=== PATIENT | female | born 1990 | race Caucasian/White ===

== ENCOUNTER 2018-12-23 06:43 | Inpatient (IN) | payer OTHER ==
[~2018-12-23] VITALS: Ht 170.2 cm; Wt 89.4 kg
[2018-12-23] MEDS ORDERED: LR 1,000 ML IV ONE (07:15)
[2018-12-23] MEDS ORDERED: CITRIC ACID/SODIUM CITRATE 30 ML UDC PO ONE (07:15)
[2018-12-23] MEDS ORDERED: CEFAZOLIN 2 GM IVPB PREMIX 50 ML IV ONE (07:15)
[2018-12-23 07:43] LABS: BASOPHILS # (AUTO) 0.1 K/uL (0.0-0.2); BASOPHILS % (AUTO) 0.6 % (0.0-2.0); EOSINOPHILS # (AUTO) 0.1 K/uL (0.0-0.4); EOSINOPHILS % (AUTO) 1.6 % (0.0-4.0); HEMOGLOBIN 12.4 g/dL (12.0-16.0); LYMPHOCYTES # (AUTO) 1.7 K/uL (1.0-5.5); LYMPHOCYTES % (AUTO) 19.4 % (20.5-51.5); MEAN CORPUSCULAR HEMOGLOBIN 31 pg (27-31); MEAN CORPUSCULAR HGB CONC 34 % (32-36); MEAN CORPUSCULAR VOLUME 92 fL (79.0-98.0); MONOCYTES # (AUTO) 0.8 K/uL (0.0-1.0); MONOCYTES % (AUTO) 9.2 % (1.7-9.3); NEUTROPHILS # (AUTO) 6.1 K/uL (1.8-7.7); NEUTROPHILS % (AUTO) 69.2 % (40.0-70.0); PLATELET COUNT (AUTO) 194 K/uL (130-430); RED BLOOD CELL COUNT(AUTO) 4.04 MIL/uL (4.2-6.2); RED CELL DISTRIBUTION WIDTH 14.6 % (9.0-15.0); WHITE BLOOD COUNT (AUTO) 8.8 K/uL (4.8-10.8)
[2018-12-23] MEDS ORDERED: OXYTOCIN/0.9 % SODIUM CHLORIDE 1,000 ML IV ONE ×2 (07:51→09:28)
[2018-12-23] MEDS ORDERED: RHO(D) IMMUNE GLOBULIN/MALTOSE 1500 UNITS/1.3 ML (WINHRO) IM PRN (08:00)
[2018-12-23] MEDS ORDERED: SENNOSIDES/DOCUSATE SODIUM 1 TAB TABLET(SENOKOT-S) PO PRN (08:00)
[2018-12-23] MEDS ORDERED: MEPERIDINE HCL/PF 50 MG/ML AMP IVP PRN (08:00)
[2018-12-23] MEDS ORDERED: BISACODYL 10 MG/SUPPOSITORY RC PRN (08:00)
[2018-12-23] MEDS ORDERED: LANOLIN 7 GM OINT. TP PRN (08:00)
[2018-12-23] MEDS ORDERED: fentaNYL CITRATE/PF 100 MCG/2 ML AMP IVP PRN ×2 (08:45)
[2018-12-23] MEDS ORDERED: NALOXONE HCL 0.4 MG/ML AMP (NARCAN) IVP PRN ×2 (08:45)
[2018-12-23] MEDS ORDERED: NALBUPHINE HCL 10 MG/ML AMP IVP PRN (08:45)
[2018-12-23] MEDS ORDERED: KETOROLAC TROMETHAMINE 60 MG/2 ML VIAL IM PRN (08:45)
[2018-12-23] MEDS ORDERED: ONDANSETRON HCL 4 MG/2 ML VIAL IVP PRN (08:45)
[2018-12-23] MEDS ORDERED: MORPHINE SULFATE 10MG/10ML PF AMP SP SCH (08:45)
[2018-12-23 09:05] VITALS: BP_SYST 127
[2018-12-23] MEDS ORDERED: BUPIVACAINE /PF 0.75% 10 ML VIAL INJ ONE (09:15)
[2018-12-23] MEDS ORDERED: LR 1,000 ML IV.SOLN IV ONE (09:15)
[2018-12-23] MEDS ORDERED: NS IRRIG SOLN 1000 ML IR ONE (09:15)
[2018-12-23] MEDS ORDERED: ePHEDrine sulfate 50 MG/ML VIAL ONE (09:15)
[2018-12-23] MEDS ORDERED: METHYLERGONOVINE MALEATE 0.2 MG/ML AMP ONE (09:15)
[2018-12-23] MEDS ORDERED: MORPHINE SULFATE 10MG/10ML PF AMP ONE (09:15)
[2018-12-23 11:18] LABS: BILIRUBIN,URINE NEGATIVE (NEGATIVE); BLOOD, URINE NEGATIVE (NEGATIVE); CLARITY/URINE CLEAR (CLEAR); COLOR,URINE YELLOW (YELLOW); GLUCOSE,URINE NEGATIVE (NEGATIVE); KETONES,URINE NEGATIVE (NEGATIVE); LEUKOCYTE ESTERASE ,URINE 1+ (NEGATIVE); NITRITE, URINE NEGATIVE (NEGATIVE); PROTEIN URINE NEGATIVE (NEGATIVE); UROBILINOGEN,URINE 0.2 (0.2-1.0)
[2018-12-23 11:27] LABS: BACTERIA,URINE FEW /HPF (None Seen); RBC,URINE 0-3 /HPF (0-3)
[2018-12-23 11:28] LABS: MUCUS,URINE 1+ /LPF (None Seen)
[2018-12-23] MEDS: DIPHENHYDRAMINE INJ 50 MG/ML VIAL IVP PRN ×2 (12:52→16:39)
[2018-12-23] MEDS ORDERED: TEMAZEPAM 15 MG CAPSULE PO PRN (21:00)
[2018-12-24 06:04] LABS: BASOPHILS # (AUTO) 0.1 K/uL (0.0-0.2); BASOPHILS % (AUTO) 0.8 % (0.0-2.0); EOSINOPHILS # (AUTO) 0.1 K/uL (0.0-0.4); EOSINOPHILS % (AUTO) 0.7 % (0.0-4.0); HEMATOCRIT 32.4 % (36-48); HEMOGLOBIN 10.7 g/dL (12.0-16.0); LYMPHOCYTES # (AUTO) 1.7 K/uL (1.0-5.5); LYMPHOCYTES % (AUTO) 12.5 % (20.5-51.5); MEAN CORPUSCULAR HEMOGLOBIN 31 pg (27-31); MEAN CORPUSCULAR HGB CONC 33 % (32-36); MEAN CORPUSCULAR VOLUME 93 fL (79.0-98.0); NEUTROPHILS # (AUTO) 10.8 K/uL (1.8-7.7); PLATELET COUNT (AUTO) 182 K/uL (130-430); RED CELL DISTRIBUTION WIDTH 14.7 % (9.0-15.0); WHITE BLOOD COUNT (AUTO) 13.7 K/uL (4.8-10.8)
[2018-12-24] MEDS: OXYCODONE/ACETAMINOPHEN 5-325 TABLET PO PRN ×4 (08:35→23:24)
[2018-12-24] MEDS: IBUPROFEN 800 MG TABLET PO PRN ×3 (12:46→23:31)
[2018-12-24] MEDS: DOCUSATE SODIUM 100 MG CAPSULE PO PRN (20:39)
[2018-12-24] MEDS: SIMETHICONE 80 MG TAB.CHEW PO PRN (20:40)
[2018-12-25] MEDS: OXYCODONE/ACETAMINOPHEN 5-325 TABLET PO PRN ×5 (05:18→20:41)
[2018-12-25] MEDS: IBUPROFEN 800 MG TABLET PO PRN ×3 (05:35→18:43)
[2018-12-25] MEDS: SIMETHICONE 80 MG TAB.CHEW PO PRN ×2 (12:29→18:43)
[2018-12-25] MEDS: DOCUSATE SODIUM 100 MG CAPSULE PO PRN (18:42)
[2018-12-26] MEDS: DOCUSATE SODIUM 100 MG CAPSULE PO PRN ×2 (00:04→12:26)
[2018-12-26] MEDS: IBUPROFEN 800 MG TABLET PO PRN ×3 (00:04→14:10)
[2018-12-26] MEDS: OXYCODONE/ACETAMINOPHEN 5-325 TABLET PO PRN ×3 (05:47→14:10)
[2018-12-26] MEDS: SIMETHICONE 80 MG TAB.CHEW PO PRN (12:26)
== END 2018-12-26 14:17 | disposition home or self-care (01) | DRG 788 ==
LOC: SPU 06:43
PROVIDERS: ADMIT Specialist; ATTEND Specialist
PROC: 10D00Z1 Extraction of Products of Conception, Low, Open Approach (ICD-10-PCS; principal; 2018-12-23 07:30)
DX: O32.1XX0 Maternal care for breech presentation, not applicable or unspecified (principal); Z3A.39 39 weeks gestation of pregnancy; Z37.0 Single live birth
CPT/HCPCS: 36415; 76815; 81000-TC; 85025; 86592; 86886; 86900; 86901; 87086; 94760; J0690; J1200; J2175; J2210; J2274; J2590; J3490; J7120